=== PATIENT | female | born 1970 | race Caucasian/White ===

== ENCOUNTER 2022-09-22 10:50 | Emergency (ER) | payer BC, OTHER ==
[~2022-09-22] VITALS: Ht 170.2 cm; Wt 74.8 kg
[2022-09-22 11:26] LABS: BASOPHILS ABSOLUTE AUTO 0.01 K/mm3 (0.00-0.23); BASOPHILS PERCENT AUTO 0 % (0-2); EOSINOPHILS ABSOLUTE AUTO 0.01 K/mm3 (0.00-0.68); EOSINOPHILS PERCENT AUTO 0 % (0-6); Hematocrit 42.1 % (33.0-51.0); Hemoglobin 14.1 g/dL (11.5-16.0); IMMATURE GRAN ABSOLUTE AUTO 0.02 K/mm3 (0.00-0.10); IMMATURE GRAN PERCENT AUTO 1 % (0-1); LYMPHOCYTES ABSOLUTE AUTO 0.75 K/mm3 (0.84-5.20); LYMPHOCYTES PERCENT AUTO 17 % (21-46); MONOCYTES ABSOLUTE AUTO 0.72 K/mm3 (0.16-1.47); MONOCYTES PERCENT AUTO 16 % (4-13); Mean Corpuscular HGB 29.9 pg (26.0-34.0); Mean Corpuscular HGB Conc 33.5 g/dL (31.5-36.5); Mean Corpuscular Volume 89 fL (80-100); Mean Platelet Volume 8.8 fL (9.1-12.4); NEUTROPHILS ABSOLUTE AUTO 2.89 K/mm3 (1.96-9.15); NEUTROPHILS PERCENT AUTO 66 % (41-73); Platelet Count 291 K/mm3 (150-400); RDW Coefficient Variation 12.2 % (11.7-14.2); RDW Standard Deviation 39.8 fL (35.1-46.3); Red Blood Cell Count 4.72 M/mm3 (3.80-5.20)
[2022-09-22] MEDS ORDERED: LORAZEPAM0.5 MG PO (11:39)
[2022-09-22] MEDS ORDERED: BUPROPION XL150 M1 PO (11:39)
[2022-09-22] MEDS ORDERED: ESTRADIOL1 M1 PO (11:39)
[2022-09-22] MEDS ORDERED: EUTHYROX25 MC1 PO (11:40)
[2022-09-22] MEDS ORDERED: MEDR5 PO (11:40)
[2022-09-22] MEDS ORDERED: GABA100 PO (11:40)
[2022-09-22] MEDS ORDERED: OMEP20ER PO (11:40)
[2022-09-22 11:44] LABS: Albumin, Blood 3.6 g/dL (3.4-5.0); Albumin/Globulin Ratio 0.9 (0.8-1.8); Bilirubin, Total 0.2 mg/dL (0.1-1.0); Bun/Creatinine Ratio 11.1 (12.0-20.0); Calcium, Blood 8.4 mg/dL (8.5-10.1); Creatinine, Blood 0.9 mg/dL (0.40-1.00); Globulin, Blood 3.8 g/dL (2.2-4.0); Total Protein, Blood 7.4 g/dL (6.4-8.2)
[2022-09-22] MEDS ORDERED: HYDSUL200 PO (13:34)
[2022-09-23 07:09] LABS: COMPLEMENT C3, SERUM 152 mg/dL (82-167); COMPLEMENT C4, SERUM 29 mg/dL (12-38)
[2022-09-23] MEDS ORDERED: PRED5 PO (12:28)
[2022-09-24 18:06] LABS: ANTI-DSDNA ANTIBODIES <1 IU/mL (0-9)
== END 2022-09-22 13:58 | disposition home or self-care (01) ==
LOC: ER 10:50
PROVIDERS: Emergency Medicine; Physician Assistant
DX: M32.9 Systemic lupus erythematosus, unspecified (principal)
CPT/HCPCS: 36415; 80053; 83605; 85025; 85651; 86140; 86160; 93005; 93010; A9270

== ENCOUNTER 2023-06-28 19:38 | Emergency (ER) | payer BC, OTHER ==
[~2023-06-28] VITALS: Ht 170.2 cm; Wt 78.0 kg
[~2023-06-28 19:38] MED LIST: BUPROPION XL150 M1 PO; ESTRADIOL1 M1 PO; EUTHYROX25 MC1 PO; GABA100 PO; HYDSUL200 PO; LORAZEPAM0.5 MG PO; MEDR5 PO; OMEP20ER PO; PRED5 PO
[2023-06-28 19:55] VITALS: BP 164/95
[2023-06-28 20:26] LABS: BASOPHILS ABSOLUTE AUTO 0.04 K/mm3 (0.00-0.23); BASOPHILS PERCENT AUTO 0 % (0-2); EOSINOPHILS ABSOLUTE AUTO 0.16 K/mm3 (0.00-0.68); EOSINOPHILS PERCENT AUTO 2 % (0-6); Hematocrit 42.3 % (33.0-51.0); Hemoglobin 14.7 g/dL (11.5-16.0); IMMATURE GRAN ABSOLUTE AUTO 0.04 K/mm3 (0.00-0.10); IMMATURE GRAN PERCENT AUTO 0 % (0-1); LYMPHOCYTES ABSOLUTE AUTO 1.67 K/mm3 (0.84-5.20); LYMPHOCYTES PERCENT AUTO 17 % (21-46); MONOCYTES ABSOLUTE AUTO 0.54 K/mm3 (0.16-1.47); MONOCYTES PERCENT AUTO 5 % (4-13); Mean Corpuscular HGB 30.3 pg (26.0-34.0); Mean Corpuscular HGB Conc 34.8 g/dL (31.5-36.5); Mean Corpuscular Volume 87 fL (80-100); Mean Platelet Volume 8.5 fL (9.1-12.4); NEUTROPHILS ABSOLUTE AUTO 7.49 K/mm3 (1.96-9.15); NEUTROPHILS PERCENT AUTO 75 % (41-73); Platelet Count 398 K/mm3 (150-400); RDW Standard Deviation 38.5 fL (35.1-46.3); Red Blood Cell Count 4.85 M/mm3 (3.80-5.20); White Blood Cell Count 9.94 K/mm3 (4.00-11.30)
[2023-06-28 20:45] LABS: Albumin, Blood 3.8 g/dL (3.4-5.0); Bilirubin, Total 0.4 mg/dL (0.1-1.0); Bun/Creatinine Ratio 14.1 (12.0-20.0); Calcium, Blood 8.6 mg/dL (8.5-10.1); Creatinine, Blood 0.71 mg/dL (0.40-1.00); Potassium, Blood 3.7 mmol/L (3.5-5.5); Total Protein, Blood 7.8 g/dL (6.4-8.2)
== END 2023-06-29 00:01 | disposition left against medical advice (07) ==
LOC: ER 19:38
PROVIDERS: Student in an Organized Health Care Education/Training Program
DX: Z53.21 Procedure and treatment not carried out due to patient leaving prior to being seen by health care provider (principal)
CPT/HCPCS: 80053; 85025